=== PATIENT | male | born 1975 | race Caucasian/White ===

== ENCOUNTER 2019-09-30 19:07 | Emergency (ER) | payer SELFPAY ==
[2019-09-30 20:16] VITALS: BP 194/120
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
--- OUTSIDE RECORDS SUMMARY | 2019-09-30 20:48 | XMS REPORT | Summary of Care ---
:1975 Author Organization [facility] Address [address] [place] [address] Care Team Providers Name Role Phone Vinay Bell Primary Care Provider Reason for Referral Refer to Department Only (Routine) Status Reason Specialty Diagnoses / Referred By Referred To Procedures Contact Contact Closed Follow-Up Physical Therapy Diagnoses Tendonitis of elbow, right Gustavo Benitez MD [address] [id number] Scheduling Instructions Please send referral to [facility] in [facility] Reason for Visit Reason Comments Establish Care Establish care with Encounter Details Date Type Department Care Team Description 09/15/2019 Office Visit [facility] Gustavo Benitez MD Well adult exam (Primary Dx); Practice [address] [facility] Essential hypertension; [address] [place] [address] Tendonitis of [place], [place] [address] [phone] Allergies Active Allergy Reactions Severity Noted Date Comments Hydrochlorothiazide Other 01/11/2018 Erectile dysfunction documented as of this encounter (statuses as of 09/15/2019) Medications Medication Sig Dispensed Refills Start Date End Date Status diclofenac 2 g by 1 Tube 2 09/15/2019 Active (VOLTAREN) 1 % Topical route Transdermal FOUR TIMES GelIndications: DAILY. Well adult exam lisinopril Take 1 Tab by 90 Tab 3 09/15/2019 Active (PRINIVIL, mouth DAILY. ZESTRIL) 20 MG Oral TabIndications: Well adult exam lisinopril Take 1 Tab by 90 Tab 1 05/21/2019 Discontinued (PRINIVIL, mouth DAILY. 0 (Dose Adjustment) ZESTRIL) 10 MG Oral TabIndications: Hypertension, well controlled documented as of this encounter (statuses as of 09/15/2019) Active Problems Problem Noted Date KATY on CPAP documented as of this encounter (statuses as of 09/15/2019) Immunizations Name Administration Dates Next Due TDAP Vaccine 09/28/2017 documented as of this encounter Social History Tobacco Use Types Packs/Day Years Used Date Never Smoker Smokeless Tobacco: Never Used Alcohol Use Drinks/Week oz/Week Comments No Sex Assigned at Date Recorded Not on file Job Start Date Occupation Industry Not on file Not on file Not on file Travel History Travel Start Travel End No recent travel history available. documented as of this encounter Last Filed Vital Signs Vital Sign Reading Time Taken Comments Blood Pressure 148/84 09/15/2019 8:40 AM EST Pulse 77 09/15/2019 8:40 AM EST Temperature 36.8 09/15/2019 8:40 AM C (98.2 EST F) Respiratory Rate 20 09/15/2019 8:40 AM EST Oxygen Saturation 98% 09/15/2019 8:40 AM EST Inhaled Oxygen Concentration - - Weight 133.1 kg (293 lb 6.4 oz) 09/15/2019 8:40 AM EST Height 172.7 cm (5' 8") 09/15/2019 8:40 AM EST Body Mass Index 44.61 09/15/2019 8:40 AM EST documented in this encounter Patient Instructions Patient InstructionsGustavo Benitez MD - 09/15/2019 8:40 AM ESTGet fasting labs and urine at earliest convenience Schedule Physical Therapy Increase 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 Follow up with me annuallyElectronically signed by Gustavo Benitez MD at 2019 9:09 AM EST documented in this encounter Progress Notes Gustavo Benitez MD - 09/15/2019 8:40 AM EST PATIENT: Ga Ford : 1975 DATE OF SERVICE: 09/15/2019 CHIEF COMPLAINT: No chief complaint on file. Subjective HISTORY OF PRESENT ILLNESS: Ga Ford is a 44-y.o. male. Pt is currently without complaint except a mild tendonitis in his elbow for which he saw PT one timewith good results. Here to establish with me today. 44 y/o previously followed by Dr. Rivera with primary diagnosis of well controlled HTN on Lisinopril. Chemistry panel was normal one year ago including glucose but last lipid profile in 2017 showed a high total cholesterol and low HDL (40). Past Medical History: Diagnosis Date GERD (gastroesophageal reflux disease) Lipoma KATY on CPAP No family history on file. Current Outpatient Medications Medication Sig lisinopril (PRINIVIL, ZESTRIL) 10 MG Oral Tab Take 1 Tab by mouth DAILY. No current facility-administered medications for this visit. Allergies Allergen Reactions Hydrochlorothiazide Other Erectile dysfunction Social History Socioeconomic History Marital status: Single Spouse name: Not on file Number of children: Not on file Years of education: Not on file Highest education level: Not on file Occupational History Not on file Social Needs Financial resource strain: Not on file Food insecurity Worry: Not on file Inability: Not on file Transportation needs Medical: Not on file Non-medical: Not on file Tobacco Use Smoking status: Never Smoker Smokeless tobacco: Never Used Substance and Sexual Activity Alcohol use: No Drug use: No Sexual activity: Not on file Lifestyle Physical activity Days per week: Not on file Minutes per session: Not on file Stress: Not on file Relationships Social connections Talks on phone: Not on file Gets together: Not on file Attends baptist service: Not on file Active member of club or organization: Not on file Attends meetings of clubs or organizations: Not on file Relationship status: Not on file Intimate partner violence Fear of current or ex partner: Not on file Emotionally abused: Not on file Physically abused: Not on file Forced sexual activity: Not on file Other Topics Concern Back Care Not Asked Bike Helmet Not Asked Blood Transfusions Not Asked Caffeine Concern Not Asked Exercise Not Asked Hobby Hazards Not Asked International Travel Not Asked Service Not Asked Occupational Exposure Not Asked Seat Belt Not Asked Self-Exams Not Asked Sleep Concern Not Asked Special Diet Not Asked Stress Concern Not Asked Weight Concern Not Asked 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 3 kids. REVIEW OF SYSTEMS: Review of Systems Constitutional: Negative for chills, diaphoresis, fever, malaise/fatigue and weight loss. HENT: Negative for congestion, ear discharge, ear pain, hearing loss, sinus pain and sore throat. Eyes: Negative for blurred vision, pain and discharge. Respiratory: Negative for cough, sputum production, shortness of breath and wheezing. Cardiovascular: Negative for chest pain, palpitations and leg swelling. Gastrointestinal: Negative for abdominal pain, blood in stool, constipation, diarrhea, heartburn, nausea and vomiting. Genitourinary: Negative for dysuria, flank pain, frequency and urgency. Musculoskeletal: Negative for falls, joint pain and myalgias. Neurological: Negative for dizziness, tingling, sensory change, loss of consciousness, weakness and headaches. Psychiatric/Behavioral: Negative for depression and suicidal ideas. The patient is not nervous/anxious and does not have insomnia. Objective PHYSICAL EXAM: VITALS: There were no vitals taken for this visit. There is no height or weight on file to calculate BMI. Physical Exam Vitals signs and nursing note reviewed. Constitutional: General: He is not in acute distress. Appearance: Normal appearance. He is well-developed. He is obese. He is not ill-appearing, toxic-appearing or diaphoretic. HENT: Head: Normocephalic and atraumatic. Right Ear: Tympanic membrane and ear canal normal. Left Ear: Tympanic membrane and ear canal normal. Nose: No congestion or rhinorrhea. Mouth/Throat: Mouth: Mucous membranes are moist. Pharynx: Oropharynx is clear. No oropharyngeal exudate or posterior oropharyngeal erythema. Eyes: General: No scleral icterus. Right eye: No discharge. Left eye: No discharge. Conjunctiva/sclera: Conjunctivae normal. Pupils: Pupils are equal, round, and reactive to light. Neck: Musculoskeletal: Normal range of motion and neck supple. No neck rigidity or muscular tenderness. Thyroid: No thyromegaly. Vascular: No carotid bruit. Cardiovascular: Rate and Rhythm: Normal rate and regular rhythm. Pulses: Normal pulses. Heart sounds: Normal heart sounds. No murmur. No friction rub. No gallop. Pulmonary: Effort: Pulmonary effort is normal. No respiratory distress. Breath sounds: Normal breath sounds. No wheezing, rhonchi or rales. Abdominal: General: Abdomen is flat. Bowel sounds are normal. There is no distension. Palpations: Abdomen is soft. Tenderness: There is no abdominal tenderness. There is no guarding or rebound. Musculoskeletal: Normal range of motion. General: Tenderness (right pronator tendon insertion pain) present. No swelling, deformity or signs of injury. Lymphadenopathy: Cervical: No cervical adenopathy. Skin: General: Skin is warm and dry. Findings: No erythema or rash. Neurological: General: No focal deficit present. Mental Status: He is alert and oriented to person, place, and time. Mental status is at baseline. Motor: No weakness. Coordination: Coordination normal. Psychiatric: Mood and Affect: Mood normal. Behavior: Behavior normal. Thought Content: Thought content normal. ASSESSMENT / IMPRESSION: 1. Well adult exam Pt doing well today. No complaints except as noted below with tendonitis. Will check labs. - COMPREHENSIVE METABOLIC PANEL; Future - URINALYSIS (LAB) WITH REFLEX CULTURE; Future - LIPID PROFILE; Future - diclofenac (VOLTAREN) 1 % Transdermal Gel; 2 g by Topical route FOUR TIMES DAILY. Dispense: 1 Tube; Refill: 2 - lisinopril (PRINIVIL, ZESTRIL) 20 MG Oral Tab; Take 1 Tab by mouth DAILY. Dispense: 90 Tab; Refill: 3 2. Essential hypertension Pt notes his BP has been in the high 130s to mid 140s at home on machine. Will increase his dose from 10 to 20 Mg of Lisinopril. Pt will check periodically at home to assess impact. 3. Tendonitis of elbow, right Will order Voltaren to use QID prn for tendonitis and renew the PT referral to continue rehab plan. Will follow up as needed. - REFER TO PHYSICAL THERAPY / REHAB; Standing Plan As above. Author: Gustavo Benitez MD 09/14/2019 19:02 documented in this encounter Plan of Treatment Name Type Priority Associated Diagnoses Order Schedule COMPREHENSIVE METABOLIC Lab Routine Well adult exam Expected: 09/15/2019 PANEL (Approximate), Expires: 09/14/2020 URINALYSIS (LAB) WITH REFLEX Lab Routine Well adult exam Expected: 2019 CULTURE (Approximate), Expires: 03/12/2020 LIPID PROFILE Lab Routine Well adult exam Expected: 09/15/2019 (Approximate), Expires: 09/14/2020 Name Type Priority Associated Diagnoses Order Schedule REFER TO PHYSICAL Referral Routine Tendonitis of elbow, 99 Occurrences starting THERAPY / REHAB right 09/15/2019 until 09/15/2020 Health Maintenance Due Date Last Done Comments HIV SCREENING 1991 LIPID DISORDER SCREENING 08/15/2018 08/15/2017 INFLUENZA VACCINE (#1) 2019 DIABETES SCREENING 05/17/2019 05/17/2018, 11/09/2017, 09/28/2017, Additional history exists DEPRESSION SCREENING 11/15/2019 11/14/2018 DTaP/Tdap/Td Vaccines (2 - 09/28/2027 09/28/2017 Tdap) HEPATITIS A IMMUNIZATION Aged Out No longer eligible SERIES based on patient's age to complete this topic HPV IMMUNIZATION SERIES Aged Out No longer eligible based on patient's age to complete this topic MENINGOCOCCAL VACCINE IMM Aged Out No longer eligible based on patient's age to complete this topic PNEUMOCOCCAL 0-64 YRS Aged Out No longer eligible based on patient's age to complete this topic documented as of this encounter Goals Goal Patient Goal Associated Recent Patient-Stated? Author Type Problems Progress Blood Pressure Blood Pressure 148/84 No Nithin Rivera < 140/90 (09/15/2019 DO Jairo 8:40 AM EST) Note: This is an individualized treatment (blood pressure) goal for Ga Ford: Displayed above (on the left) is your goal for blood pressure control. Your most recent blood pressure is also shown above, on the right. You should try to achieve blood pressures that are lower than your goal listed above (on the left). Weight loss vs. 18 mo max Lifestyle 0 (09/15/2019 8:40 AM EST) Nithin Morocho DO (lbs) >= 10 Note: This is an individualized lifestyle goal for Ga Fodr: Your body mass index (BMI) is more than 30. You should lose weight. A reasonable starting goal is to lose 10 pounds. Displayed above is how many pounds you have lost thus far towards your 10 pound weight loss goal. Take all prescribed medications as directed Self-management Nithin Morocho DO Note: This is an individualized self-management goal for Ga Ford: Please take all prescribed medications as directed. 1. Do not skip doses. If you cannot afford your medications, talk with your doctor. 2. Use a pill reminder system such as a pill box if needed. Your pharmacist can help you with this. 3. Contact your Pharmacy 5 days before your medication runs out. If you cannot take your medications for any reasons, talk with your doctor. 4. Please bring all of your medication bottles and inhalers (or a list of all your medications/inhalers) with you to every visit. Potential barriers to meeting all of your care plan goals will continue to be addressed on an ongoing basis. documented as of this encounter Results Not on filedocumented in this encounter Visit Diagnoses Diagnosis Well adult exam Routine general medical examination at a health care facility Essential hypertension Unspecified essential hypertension Tendonitis of elbow, right Other synovitis and tenosynovitis documented in this encounter documented as of this encounter
== END 2019-09-30 20:57 | disposition home or self-care (01) ==
LOC: ED 19:07
DX: M79.632 Pain in left forearm (principal); R51 Headache; M54.2 Cervicalgia; V43.52XA Car driver injured in collision with other type car in traffic accident, initial encounter; Y92.410 Unspecified street and highway as the place of occurrence of the external cause; I10 Essential (primary) hypertension
CPT/HCPCS: 99282